=== PATIENT | male | born 1990 | race Caucasian/White ===

== ENCOUNTER 2016-12-17 14:31 | Emergency (ER) | payer SELFPAY ==
[2016-12-17] MEDS ORDERED: Cyclobenzaprine TAB* 10 MG PO ONE (16:20)
[2016-12-17] MEDS ORDERED: HYDROcodone/ACETAMIN 5-325 MG* 1 TAB PO ONE (16:27)
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
--- NOTE | 2016-12-17 16:55 | RAD ---
Indication: Back pain. 2 views of the thoracic spine demonstrate vertebral bodies to be normal in height. Disc spaces all well-preserved. No fracture is identified. IMPRESSION: No fracture of the thoracic spine is noted.
--- NOTE | 2016-12-17 16:56 | RAD ---
Indication: Right shoulder pain. 4 views of the right shoulder demonstrates no fracture. No other bone or joint abnormality is noted. IMPRESSION: No fracture of the right shoulder is present.
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
[2016-12-17 18:27] VITALS: BP 140/80
== END 2016-12-17 18:28 | disposition home or self-care (01) ==
LOC: ED 14:31
DX: S13.9XXA Sprain of joints and ligaments of unspecified parts of neck, initial encounter (principal); V43.52XA Car driver injured in collision with other type car in traffic accident, initial encounter; Y92.9 Unspecified place or not applicable; F17.200 Nicotine dependence, unspecified, uncomplicated
CPT/HCPCS: 72050; 72070; 99283; A9270-GY